=== PATIENT | female | born 1965 | race Caucasian/White ===

== ENCOUNTER 2020-03-31 10:52 | Outpatient (CLI) | payer OTHER ==
--- NOTE | 2020-03-31 11:21 | RAD ---
RIGHT HIP 2 VIEWS: Date: 03/31/2020 HISTORY: Pain x1 month without trauma. FINDINGS: Joint space is well preserved. There is no sign of fracture. IMPRESSION: Essentially unremarkable right hip. POS: JUNIOR
== END 2020-03-31 10:53 | disposition home or self-care (01) ==
LOC: MADRAD 10:52
PROVIDERS: ATTEND Family Medicine
DX: M25.551 Pain in right hip (principal)

== ENCOUNTER 2021-06-22 14:48 | Outpatient (CLI) | payer OTHER | END 2021-06-22 14:49 | disposition home or self-care (01) | LOC: MADRAD 14:48 | PROVIDERS: ATTEND Family Medicine | DX: M54.2 Cervicalgia (principal); M54.6 Pain in thoracic spine; M47.812 Spondylosis without myelopathy or radiculopathy, cervical region | CPT/HCPCS: 72050; 72072; 72100 ==

== ENCOUNTER 2023-02-28 10:30 | Outpatient (CLI) | payer OTHER | END 2023-02-28 10:31 | disposition home or self-care (01) | LOC: MADRAD 10:30 | PROVIDERS: ATTEND Internal Medicine | DX: M51.16 Intervertebral disc disorders with radiculopathy, lumbar region (principal) | CPT/HCPCS: 72110 ==